=== PATIENT | male | born 1980 | race Caucasian/White ===

== ENCOUNTER 2018-06-30 20:42 | Emergency (ER) | payer SELFPAY ==
[~2018-06-30] VITALS: Ht 177.8 cm; Wt 81.0 kg
[2018-06-30] MEDS ORDERED: KETOROLAC 30MG/ML VIAL IV STA (23:40)
[2018-06-30] MEDS ORDERED: ONDANSETRON HCL 4MG/2ML INJ IV STA (23:40)
[2018-06-30] MEDS ORDERED: FAMOTIDINE 20MG/2ML VIAL IV STA (23:40)
[2018-06-30] MEDS ORDERED: SODIUM CHLORIDE 0.9% 1,000 ML IV ONE (23:59)
[2018-07-01] MEDS ORDERED: KETOROLAC 15MG/ML VIAL IV ONE
[2018-07-01 00:12] LABS: BASOPHILS % 0.2 % (0.0-2.0); EOSINOPHILS % 0.6 % (0.0-5.0); HEMATOCRIT. 39.9 % (42.0-52.0); HEMOGLOBIN. 13.4 g/dL (14.0-18.0); MEAN CORPUSCULAR HEMOGLOBIN 28.1 pg (28.0-32.0); MEAN CORPUSCULAR VOLUME 83.6 fL (80.0-94.0); MEAN PLATELET VOLUME 7.2 fl (7.4-10.4); MONOCYTES % 6.4 % (2.0-8.0); NEUTROPHILS % 75.8 % (40.0-76.0); PLATELET 347 x1000/uL (130-400); RED BLOOD CELL COUNT 4.77 mill/uL (4.7-6.1); RED CELL DISTRIBUTION WIDTH 14.1 % (11.6-14.6)
[2018-07-01 00:20] LABS: CHLORIDE 106 mEq/L (98-107)
[2018-07-01 00:25] LABS: ETHANOL BLOOD < 10 mg/dL
[2018-07-01 00:28] VITALS: BP 129/57
== END 2018-07-01 00:42 | disposition left against medical advice (07) ==
LOC: ER 20:42
DX: R10.84 Generalized abdominal pain (principal); F10.10 Alcohol abuse, uncomplicated; Y90.0 Blood alcohol level of less than 20 mg/100 ml; F11.10 Opioid abuse, uncomplicated
CPT/HCPCS: 36415; 80053; 80320; 83690; 85025; 96374; 96375; 99283; J1885; J2405; J3490; J7030; G0480

== ENCOUNTER 2018-09-25 18:46 | Emergency (ER) | payer SELFPAY ==
[~2018-09-25] VITALS: Ht 177.8 cm; Wt 73.0 kg
[2018-09-25] MEDS ORDERED: SODIUM CHLORIDE 0.9% 1,000 ML IV ONE (23:49)
[2018-09-25] MEDS ORDERED: ONDANSETRON HCL 4MG/2ML INJ IV STA (23:49)
[2018-09-25] MEDS ORDERED: KETOROLAC 30MG/ML VIAL IV STA (23:49)
[2018-09-26] MEDS ORDERED: KETOROLAC 15MG/ML VIAL IV NR (00:15)
[2018-09-26 00:36] LABS: BASOPHILS % 0.2 % (0.0-2.0); EOSINOPHILS % 0.2 % (0.0-5.0); HEMATOCRIT. 39.2 % (42.0-52.0); HEMOGLOBIN. 13.7 g/dL (14.0-18.0); LYMPHOCYTES % 11.6 % (20.0-50.0); MEAN CORPUSCULAR HEMOGLOBIN 28.7 pg (28.0-32.0); MEAN CORPUSCULAR VOLUME 82.3 fL (80.0-94.0); MEAN PLATELET VOLUME 6.7 fl (7.4-10.4); MONOCYTES % 5.3 % (2.0-8.0); NEUTROPHILS % 82.7 % (40.0-76.0); PLATELET 358 x1000/uL (130-400); RED BLOOD CELL COUNT 4.77 mill/uL (4.7-6.1); RED CELL DISTRIBUTION WIDTH 14.2 % (11.6-14.6)
[2018-09-26 00:42] LABS: CHLORIDE 103 mEq/L (98-107)
[2018-09-26 00:51] LABS: CREATINE KINASE 142 IU/L (39-308)
[2018-09-26] MEDS ORDERED: METOCLOPRAMIDE HCL 10MG/2ML VIAL IV ONE (02:45)
[2018-09-26] MEDS ORDERED: ONDANSETRON HCL 4MG/2ML INJ IV ONE ×2 (06:15→09:00)
[2018-09-26] MEDS ORDERED: KETOROLAC 30MG/ML VIAL IM ONE (06:15)
[2018-09-26] MEDS ORDERED: KETOROLAC 15MG/ML VIAL IM SCH (06:18)
[2018-09-26 06:35] LABS: CLARITY URINE CLEAR (CLEAR); COLOR URINE YELLOW (YELLOW); KETONES URINE NEGATIVE (NEGATIVE); LEUKOCYTE ESTERASE URINE NEGATIVE (NEGATIVE); NITRITE URINE NEGATIVE (NEGATIVE); OCCULT BLOOD URINE NEGATIVE (NEGATIVE); PH URINE >=9.0 (4.5-8.0); PROTEIN URINE TRACE (NEGATIVE); SPECIFIC GRAVITY URINE 1.019 (1.005-1.030)
[2018-09-26 06:45] LABS: *AMPHETAMINES SCREEN URINE NEGATIVE (NEGATIVE); *BARBITURATES SCREEN URINE NEGATIVE (NEGATIVE); *BENZODIAZEPINES SCREEN URINE NEGATIVE (NEGATIVE); *COCAINE SCREEN URINE PRESUMTIVE POSITIVE (NEGATIVE); METHADONE URINE SCREEN NEGATIVE (NEGATIVE); OPIATES URINE SCREEN PRESUMTIVE POSITIVE (NEGATIVE)
[2018-09-26 06:46] LABS: CANNABINOID URINE SCREEN NEGATIVE (NEGATIVE); PHENCYCLIDINE URINE SCREEN NEGATIVE (NEGATIVE)
[2018-09-26 07:26] VITALS: BP 128/74
[2018-09-26] MEDS ORDERED: KETOROLAC 30MG/ML VIAL IV STA (08:53)
[2018-09-26] MEDS ORDERED: CLONAZEPAM 1MG TABLET PO ONE ×2 (09:00)
== END 2018-09-26 10:22 | disposition left against medical advice (07) ==
LOC: ER 18:50
DX: F11.23 Opioid dependence with withdrawal (principal); K02.9 Dental caries, unspecified; F10.20 Alcohol dependence, uncomplicated; M79.10 Myalgia, unspecified site; Y90.9 Presence of alcohol in blood, level not specified
CPT/HCPCS: 36415; 80053; 80305; 81003; 82550; 85025; 96361; 96372; 96374; 96375; 96376; 99283; J1885; J2405; J2765; J7030; Z7610